=== PATIENT | female | born 1995 | race Caucasian/White ===

== ENCOUNTER 2024-10-28 18:22 | Inpatient (IN) ==
[2024-10-28] MEDS ORDERED: LIDOCAINE 1% LOCAL 20 ML VIAL INFIL PRN (18:47)
[2024-10-28] MEDS ORDERED: OXYTOCIN 30 UNITS/NSS 30 UNITS/500 ML BAG IV PRN (18:47)
[2024-10-28 19:39] LABS: Hematocrit (blood only) 40.7 % (37.0-47.0); Hemoglobin 14.3 g/dl (12.0-16.0); Mean Corpuscular Hemoglobin 30.8 pg (25.0-34.0); Mean Corpuscular Volume 87.5 fL (80.0-100.0); Platelet Count 244 K/uL (130-400); RDW Standard Deviation 39.4 fL (36.4-46.3); Red Blood Count 4.65 M/uL (4.20-5.40); White Blood Count 22.41 K/ul (4.8-10.8)
[2024-10-28] MEDS ORDERED: LIDOCAINE 2% MPF LOCAL 5 ML VIAL EPI PRN (19:59)
[2024-10-28] MEDS ORDERED: NALOXONE HCL 1 MG in SODIUM CHLORIDE 0.9% 1,000 ML IV PRN (19:59)
[2024-10-28] MEDS ORDERED: ROPIVACAINE 0.5% PF 5 MG/ML 20 ML VIAL EPI PRN (19:59)
[2024-10-28] MEDS ORDERED: NALBUPHINE HCL INJ 10 MG/ML AMP IV PRN (19:59)
[2024-10-28] MEDS ORDERED: NALOXONE HCL 0.4 MG/1 ML VIAL/CARP IV PRN (19:59)
[2024-10-28] MEDS ORDERED: SODIUM CHLORIDE 0.9% PF INJ 10 ML VIAL EPI PRN (19:59)
[2024-10-28] MEDS ORDERED: BUPIVACAINE 0.25% PF 30 ML VIAL EPI PRN (19:59)
[2024-10-28] MEDS ORDERED: diphenhydrAMINE 50 MG/ML VIAL IV PRN (19:59)
--- NOTE | 2024-10-28 19:59 | Anesthesiology Consultation ---
Date of Service October 28, 2024 Assessment & Plan Chart Review Chart Review: Acceptable Risk for Labor Epidural Consults Requested none History Height/Weight Height: 5 ft 4 in Weight: 66.678 kg Allergies Allergy/AdvReac Type Severity Reaction Status Date / Time No Known Allergies Allergy Verified 10/26/24 08:40 Medications Home Medications Medication Instructions Recorded Confirmed Last Taken 21-iron fu-folic acid 1 tab PO DAILY 03/27/24 10/26/24 08/12/24 [ Complete] breast pump #1 ea 08/24/24 10/26/24 Unknown Past Medical History Medical History Varicella vaccination Eating disorder Bradycardia Anxiety and depression Anorexia nervosa Anemia Past Family History Family History Mother Stroke Denies family history of Ovarian cancer Prostate cancer Breast cancer Colorectal cancer Past Surgical History Surgical History S/P tonsillectomy Social History Smoking Status: Never smoker Do You Dip or Chew Tobacco: No Hx Alcohol Use: Yes Hx Substance Use: No substance use type: does not use Physical Exam Vital Signs Last Vital Signs Temp 36.8 C 10/28/24 18:34 Pulse 96 H 10/28/24 18:34 Resp 22 10/28/24 18:34 BP 132/82 10/28/24 18:34 Testing Laboratory Results 10/28/24 19:17
[2024-10-28] MEDS: fentANYL 2 MCG/ML BUPIVacaine 0.125%-NSS 100ML BAG EPI PRN (20:25)
[2024-10-28] MEDS: LIDOCAINE 2%/EPINEPHRINE 1:200,000 20 ML PF EPI STA (20:26)
[2024-10-28] MEDS: LACTATED RINGER'S 1,000 ML IV PRN (20:26)
--- NOTE | 2024-10-28 21:18 | History & Physical Report ---
Date of Service October 28, 2024 Assessment & Plan (1) Normal labor: Plan pt has been admitted. epidural in place. fhts categ 1. will see how arom helps labor pattern but rec we add pitocin and pt agreeable. History of Present Illness Chief Complaint: regular ctx. Primary Care Provider: Vero Kapoor PA-C 29yo at 39wks shelia presents with cc of regular ctx in active labor. She called over course of day with irregular ctx, having been seen overnight wednesday into sat am for ctx and was not in labor. When ctx became regular and closer came back to have cx evaluation and was 7cm per nurse. She wanted epidural and received, now with improvement in pain. Accepts arom. PNC uncomplicated. PNL rhpos, ri, gbs neg OBH: g1 GYNH: nl paps, no stds Allergies Allergy/AdvReac Type Severity Reaction Status Date / Time No Known Allergies Allergy Verified 10/26/24 08:40 Home Medications Medication Instructions Recorded Confirmed Type 21-iron fu-folic acid 1 tab PO DAILY 03/27/24 10/26/24 History [ Complete] breast pump #1 ea 08/24/24 10/26/24 Rx Patient History Medical History Varicella vaccination Eating disorder Bradycardia Anxiety and depression Anorexia nervosa Anemia Surgical History S/P tonsillectomy Family History Mother Stroke Denies family history of Ovarian cancer Prostate cancer Breast cancer Colorectal cancer Social History Smoking Status: Never smoker Do You Dip or Chew Tobacco: No; Hx Alcohol Use: Yes Hx Substance Use: No Preferred Language: Latvian Communication Ability: Effective Department Coordinator Required: No Beliefs That Will Affect Care: None marital status: marital status details: Waldo Eva (26) [phone] Current Living Situation: Spouse Current Living Situation Comment: lives with spouse, cats-spouse changing litter current occupational status: employed current occupation: [employer] Other Information That Helps Us Care for You: No Feels Safe at Home: Yes Assistive Devices: None Review of Systems as per Subjective / HPI Physical Exam Constitutional: WD/WN, vitals as above Respiratory: normal respiratory effort, lungs clear to auscultation Cardiovascular: Rate/Rhythm: regular rate and regular rhythm Gastrointestinal (Abdomen): soft gravid nt efw 7-8# Musculoskeletal: no edema nontender calves Neurologic: grossly normal Psychiatric: A+Ox3, euthymic affect Genitourinary: Manual OB Exam: + cervical dilation 7 cm, + cervical effacement 100%, + station -1 and + amniotic fluid (arom) clear OB Exam Monitor Tracing: + external FHT monitor used, + external uterine monitor used (q5 min), + category I and + normal FHT variability Results & Data Vital Signs (Past 12 Hours) Vital Signs Temp Pulse Resp BP Pulse Ox 10/28/24 21:08 97 10/28/24 21:08 100 H 10/28/24 21:04 92 10/28/24 21:04 95 H 10/28/24 21:03 94 10/28/24 21:03 95 H 10/28/24 20:58 95 10/28/24 20:58 86 10/28/24 20:58 129/76 10/28/24 20:53 95 10/28/24 20:53 93 H 10/28/24 20:48 96 10/28/24 20:48 90 10/28/24 20:43 95 10/28/24 20:43 95 H 10/28/24 20:42 98 H 10/28/24 20:42 129/79 10/28/24 20:40 102 H 10/28/24 20:40 125/72 10/28/24 20:38 95 10/28/24 20:38 104 H 10/28/24 20:37 100 H 10/28/24 20:37 138/78 10/28/24 20:35 18 10/28/24 20:35 18 10/28/24 20:35 105 H 10/28/24 20:35 135/75 10/28/24 20:33 95 10/28/24 20:33 107 H 10/28/24 20:33 144/79 H 10/28/24 20:32 109 H 10/28/24 20:32 138/80 10/28/24 20:29 18 10/28/24 20:29 18 10/28/24 20:29 114 H 10/28/24 20:29 116/72 10/28/24 20:28 98 10/28/24 20:28 118 H 10/28/24 20:27 123 H 10/28/24 20:27 135/78 10/28/24 20:25 18 10/28/24 20:25 18 10/28/24 20:25 113 H 10/28/24 20:25 140/82 10/28/24 20:24 131 H 10/28/24 20:24 138/78 10/28/24 20:23 99 10/28/24 20:23 134 H 10/28/24 20:21 121 H 10/28/24 20:21 139/74 10/28/24 20:20 20 10/28/24 20:20 20 10/28/24 20:19 123 H 10/28/24 20:19 147/82 H 10/28/24 20:18 95 10/28/24 20:18 121 H 10/28/24 20:15 20 10/28/24 20:15 20 10/28/24 20:13 95 10/28/24 20:13 118 H 10/28/24 18:34 98.2 F 96 H 22 132/82 Coding Level of Care Code None Diagnoses Normal labor O80; Z37.9
[2024-10-28] MEDS: LIDOCAINE 2%/EPINEPHRINE 1:200,000 20 ML PF ONE (21:29)
[2024-10-28] MEDS: BUPIVACAINE 0.25% PF 30 ML VIAL ONE (21:29)
[2024-10-28] MEDS: fentANYL 2 MCG/ML BUPIVacaine 0.125%-NSS 100ML BAG ONE (21:29)
[2024-10-28] MEDS: SODIUM CHLORIDE 0.9% PF INJ 10 ML VIAL ONE (21:30)
[2024-10-28] MEDS: BUPIVACAINE 0.25% PF 30 ML VIAL EPI STA (21:35)
[2024-10-28] MEDS: SODIUM CHLORIDE 0.9% PF INJ 10 ML VIAL EPI STA (21:36)
[2024-10-28] MEDS: OXYTOCIN 30 UNITS/NSS 30 UNITS/500 ML BAG IV PRN (21:44)
[2024-10-28] MEDS ORDERED: LIDOCAINE 2%/EPINEPHRINE 1:200,000 20 ML PF ONE (22:10)
--- NOTE | 2024-10-28 22:22 | Anesthesia Procedure Note ---
Date of Service October 28, 2024 Anesthesia Epidural Re-Dose Vital Signs Temp Pulse Resp BP Pulse Ox 36.8 C 118 H 18 126/73 97 10/28/24 18:34 10/28/24 22:18 10/28/24 21:31 10/28/24 22:13 10/28/24 22:18 Notes Pain Intensity: 9 Dilatation (cm): 7.0 Effacement (%): 100 Called by nursing to evaluate epidural as the patient is having increased pain. The epidural was re-dosed with the following medications (all medications via epidural route) after negative aspiration of the epidural catheter for CSF/HEME. 5 ml 2% via epidural After Epidural Re-Dose Mental Status: alert / awake / arousable and participated in evaluation Pain: improving with treatment Airway Patency, RR, SpO2: stable & adequate BP & HR: stable & adequate
--- NOTE | 2024-10-29 00:50 | Delivery Summary ---
Vaginal Delivery Summary Date of Service October 29, 2024 Vaginal Delivery Summary The patient dilated to complete and pushed to deliver a viable female Apgars 7 and 8 via over intact perineum. Mouth and nose bulb suctioned at perineum. Loose nuchal x 1 noted and delivered through. Shoulders and body delivered with ease. Infant was vigorous and crying at . Cord clamped at 30 seconds of life and infant to maternal abdomen where the cord was then doubly clamped and cut. Placenta delivered spontaneously and intact, three-vessel cord. Hemostasis achieved with dilute pitocin and uterine massage. Cervix and sulci intact. Right labial laceration and left periurethral laceration reapproximated/repaired with 4-0 vicryl in interrupted sutures. QBL 117 cc. Mother and baby stable in recovery. [facility] V[facility] Delivery Charge Delivery Type Details:
[2024-10-29] MEDS ORDERED: OXYTOCIN 30 UNITS/NSS 30 UNITS/500 ML BAG IV PRN (01:00)
[2024-10-29] MEDS ORDERED: HYDROCORTISONE ACETATE 25 MG SUPP PR PRN (01:00)
[2024-10-29] MEDS: DIPHTHER/TETAN/PERTUS Vaccine (Tdap, Adol/Adult) 0.5mL IM ONE (07:15)
--- NOTE | 2024-10-29 07:42 | Anesthesia Procedure Note ---
Date of Service October 29, 2024 Anesthesia Post Epidural Note Vital Signs Vital Signs: Temp Pulse Resp BP Pulse Ox O2 Del Method 37.0 C 103 H 16 120/73 99 Room Air 10/29/24 03:47 10/29/24 03:47 10/29/24 03:47 10/29/24 03:47 10/29/24 03:47 10/29/24 03:47 Notes Mental Status: alert / awake / arousable Nausea / Vomiting: adequately controlled Pain: adequately controlled Airway Patency, RR, SpO2: stable & adequate BP & HR: stable & adequate Hydration State: stable & adequate Neuraxial Anesthesia: was administered and sensory block is resolving Anesthetic Complications: no major complications apparent Epidural: Removed without complications and With tip intact
[2024-10-29] MEDS: DOCUSATE SODIUM 100 MG CAP PO SCH (07:56)
[2024-10-29] MEDS: PRENATAL VITAMIN 1 TAB PO SCH (07:56)
[2024-10-29] MEDS: IBUPROFEN 600 MG TAB PO PRN (07:56)
[2024-10-29] MEDS: BENZOCAINE 20% SPRY 85 APPLN/85 GM CAN EXT PRN (08:06)
--- NOTE | 2024-10-30 05:55 | Obstetrical Progress Note ---
Date of Service October 30, 2024 Assessment & Plan (1) care and examination: Plan: Patient is post status day 1 and is currently stable. Will discharge patient either today or tomorrow. Admission and Anticipated Discharge Date Admission Date: October 28, 2024 Supervising Physician Co-Signing Physician Notes Resident Physician Supervision Note: I interviewed and examined the patient. Discussed with Dr. Bennett and agree with findings and plan as documented in the note. Any exceptions or clarifications are listed here: pt doing well, eating, voiding, ambulating without problem and decreased bleeding. notes she is pumping as baby in INBN due to needing o2 and concern for infection. planning breast feeding. abd soft ff 2 down nt, ext nt calves. no edema. ppd #1 s/p , doing well. routine care. baby in INBN. Documented By: Anny Silva MD, FACOG Subjective 29 yo post- day 1 s/p [] Ambulation: ambulating normally Voiding: no voiding problems Passing Gas:: Yes Diet Tolerance:: regular diet Feeding Type:: bottle feeding with breast pump Current Pain Level:1-2/10. A 3/10 overnight. Patient describes the pain as a slight cramp. Resting comfortably this AM in NAD. Patient admits to a slight swelling. Denies fevers/chills, MARTINEZ, CP/palp, SOB/cough/wheezing, N/V/D, LE pain, breast pain/dschrg, UTI Sx Review of Systems Review of Systems: as per subjective HPI Physical Exam Constitutional: WD/WN, vitals as above Respiratory: normal respiratory effort, lungs clear to auscultation Cardiovascular: RRR, no murmur, no edema Extremities: no calf tenderness and no edema Gastrointestinal (Abdomen): Percussion/Palpation: abdomen soft; abdomen nontender Skin: no rashes, warm and dry Psychiatric: Eye Contact: good eye contact Speech: normal rate/rhythm/volume of speech Thought Process: linear/logical thought process Genitourinary: uterus is firm and 1cm above the umbilicus. Results & Data Vital Signs (Past 12 Hours) Vital Signs Temp Pulse Resp BP Pulse Ox O2 Del Method 10/29/24 22:52 36.5 C 60 16 125/81 98 Room Air 10/29/24 19:00 36.6 C 70 16 124/80 99 Room Air Laboratory Results Lab Results 10/28/24 Range/Units 19:17 WBC 22.41 H (4.8-10.8) K/ul RBC 4.65 (4.20-5.40) M/uL Hgb 14.3 (12.0-16.0) g/dl Hct 40.7 (37.0-47.0) % MCV 87.5 (80.0-100.0) fL MCH 30.8 (25.0-34.0) pg MCHC 35.1 (32.0-36.0) g/dL RDW Std Deviation 39.4 (36.4-46.3) fL RDW Coeff of Hoa 12.5 (11.5-14.5) % Plt Count 244 (130-400) K/uL MPV 11.5 (9.4-12.4) fL Treponema pallidum Ab Negative (Negative)
--- NOTE | 2024-10-31 05:58 | Obstetrical Progress Note ---
Date of Service October 31, 2024 Assessment & Plan (1) care and examination: Plan: Patient is post status day 2 and is currently stable. Will discharge patient either today. Admission and Anticipated Discharge Date Admission Date: October 28, 2024 Supervising Physician Co-Signing Physician Notes Patient seen with resident and agree with the above findings and plan. Patient stable for discharge Subjective 29 yo post- day 2 s/p [] Ambulation: ambulating normally Voiding: no voiding problems Passing Gas:: Yes Diet Tolerance:: regular diet Feeding Type:: breast feeding Current Pain Level:Improved. 1/10 crampy pain. Resting comfortably this AM in NAD. Patient admits to a slight swelling. Denies fevers/chills, MARTINEZ, CP/palp, SOB/cough/wheezing, N/V, LE pain, breast pain/dschrg, UTI Sx Review of Systems Review of Systems: as per subjective HPI Physical Exam Constitutional: WD/WN, vitals as above Respiratory: normal respiratory effort, lungs clear to auscultation Cardiovascular: Rate/Rhythm: regular rate and regular rhythm Heart Sounds: normal S1 and normal S2; no murmur Extremities: + edema (1+ in LE b/l); no calf tenderness Gastrointestinal (Abdomen): Percussion/Palpation: abdomen soft; abdomen nontender Skin: no rashes, warm and dry Psychiatric: Eye Contact: good eye contact Speech: normal rate/rhythm/volume of speech Thought Process: linear/logical thought process Genitourinary: uterus is firm at umbilicus Results & Data Vital Signs (Past 12 Hours) Vital Signs Temp Pulse Resp BP Pulse Ox O2 Del Method 10/30/24 23:05 36.5 C 62 18 124/81 98 Room Air 10/30/24 19:30 36.8 C 73 18 122/78 98 Room Air Laboratory Results Lab Results 10/28/24 Range/Units 19:17 WBC 22.41 H (4.8-10.8) K/ul RBC 4.65 (4.20-5.40) M/uL Hgb 14.3 (12.0-16.0) g/dl Hct 40.7 (37.0-47.0) % MCV 87.5 (80.0-100.0) fL MCH 30.8 (25.0-34.0) pg MCHC 35.1 (32.0-36.0) g/dL RDW Std Deviation 39.4 (36.4-46.3) fL RDW Coeff of Hoa 12.5 (11.5-14.5) % Plt Count 244 (130-400) K/uL MPV 11.5 (9.4-12.4) fL Treponema pallidum Ab Negative (Negative)
--- NOTE | 2024-10-31 14:21 | Communication Note ---
Date of Service: October 31, 2024 Pt informed rn that labia was a bit more sore, had also noted more white/yellow dc in her lochia. Afebrile, had skipped her tylenol dose earlier. On exam, lacerations appear to be healing well and w/o evidence of drainage from the lac sites/abnl discharge. No areas of increased tenderness more than anticipated, erythema to suggest infection. Discussed continued tylenol/motrin use, not been using ice packs/dermoplast as much either so encouraged to use but at this point I think ok to still dc. Reviewed s/s to call for
[2024-10-31] MEDS: ACETAMINOPHEN 325 MG TAB PO PRN (14:24)
[2024-10-31 15:11] VITALS: BP 117/79; PULSE 85; RESP 18; TEMP 98.1; O2SAT 97
== END 2024-10-31 17:30 | disposition home or self-care (01) | DRG 807 ==
LOC: OPB 18:22 → 4S1 18:23 → 4E2 10-29 03:16